=== PATIENT | female | born 1940 | race Caucasian/White ===

== ENCOUNTER 2016-04-20 13:58 | Inpatient (IN) | payer OTHER, MEDICARE ==
[~2016-04-20] VITALS: Ht 157.5 cm; Wt 57.7 kg
[2016-04-23] MEDS ORDERED: VITA20003 PO (12:19)
[2016-04-23] MEDS ORDERED: MAGN500T2 PO (12:19)
[2016-04-23] MEDS ORDERED: LOSA50TA PO (12:19)
[2016-04-23] MEDS ORDERED: ASPI81CH37 CHEW (12:19)
[2016-04-23] MEDS ORDERED: VYTO10TA8 PO (12:19)
--- NOTE | 2016-04-25 11:15 | PD.HP.UP ---
H&P Update Note The Pre-Admit History and Physical Examination regarding the above named patient was reviewed (including, but not limited to, vital signs, heart, lungs, co-morbid conditions), and upon re-examination it is noted that: the patient's condition has not significantly changed since the last examination. Ramón Lu MD Apr 25, 2016 11:15
[2016-04-25] MEDS ORDERED: ceFAZolin 1,000 MG/NS 100 ML IV SCH ×2 (11:30)
[2016-04-25] MEDS ORDERED: ALVIMOPAN 12 MG CAPSULE - On Call PO SCH (11:30)
[2016-04-25] MEDS ORDERED: METRONIDAZOLE 500 MG/100 ML ISONTONIC SOLN IV SCH (11:45)
[2016-04-25] MEDS ORDERED: NEOSTIGMINE 3 MG/3 ML SYR IV ONE (12:00)
[2016-04-25] MEDS ORDERED: LACTATED RINGER'S 1000 ML INJ 2,000 ML IV ONE (12:00)
[2016-04-25] MEDS ORDERED: ePHEDrine/NS 25 MG/5 ML SYR IV ONE (12:00)
[2016-04-25] MEDS ORDERED: ONDANSETRON HCL 4 MG/2 ML VIAL IV PUSH ONE (12:00)
[2016-04-25] MEDS ORDERED: PHENYLEPH/NS 1000 MCG/10 ML SYR IV ONE (12:00)
[2016-04-25] MEDS ORDERED: PROPOFOL 200 MG/20 ML AMP IV ONE (12:00)
[2016-04-25 12:13] VITALS: BP 119/73; PULSE 87; RESP 20; TEMP 98.4; O2SAT 95
[2016-04-25] MEDS ORDERED: SODIUM CHLORID 0.9% 500 ML IV SCH (12:15)
[2016-04-25] MEDS ORDERED: METOPROLOL TARTRATE 25 MG TAB PO PRN (12:15)
[2016-04-25] MEDS ORDERED: INSULIN HUMAN REGULAR 1,000 UNITS/10 ML VIAL SQ PRN (12:15)
[2016-04-25] MEDS: LACTATED RINGER'S 1000 ML IV SCH (12:24)
[2016-04-25] MEDS ORDERED: BUPIVACAINE HCL PF 0.5% 30 ML VIAL ONE (12:56)
[2016-04-25] MEDS ORDERED: DEXAMETHASONE SOD PHOS 4 MG/ML VIAL ONE (13:07)
[2016-04-25] MEDS ORDERED: MIDAZOLAM HCL 2 MG/2 ML VIAL ONE (13:07)
[2016-04-25] MEDS ORDERED: FAMOTIDINE 20 MG/2 ML VIAL ONE (13:07)
[2016-04-25] MEDS ORDERED: GLUCAGON 1 MG/ML VIAL ONE ×2 (14:24→14:25)
--- NOTE | 2016-04-25 15:42 | HHI.PR ---
Immediate Post Op Note Procedure Date: Apr 25, 2016 Pre Op Diagnosis: Colon stricture Post Op Diagnosis: Same Surgeon: Ramón Lu Dry Dip Worker(s): Lise Procedure: Exploratory laparotomy, LAR, bowel pre, colonoscopy Findings: colon stuck in lt pelvic sidewall, s shaped loop, tics liver normal, GB absent uterus/ovary absent Complications: None Specimen(s) removed: rectosigmoid Estimated blood loss: 150cc Anesthesia: General Drains: NATHANAEL IVF Patient to: PACU Ramón Lu MD Apr 25, 2016 15:42
[2016-04-25] MEDS ORDERED: ENALAPRILAT 2.5 MG/2 ML VIAL IV PRN (15:45)
[2016-04-25] MEDS ORDERED: Post-op Orders (for Pharmacy) MISC XX ONE (15:45)
[2016-04-25] MEDS ORDERED: POTASSIUM CHLOR 40 MEQ PREMIX 100 ML IV PRN (15:45)
[2016-04-25] MEDS ORDERED: POTASSIUM CHLOR 20 MEQ PREMIX 100 ML IV PRN (15:45)
[2016-04-25] MEDS ORDERED: ACETAMINOPHEN 325 MG TAB PO PRN (15:45)
[2016-04-25] MEDS ORDERED: NALOXONE HCL 0.4 MG/ML AMP IV PRN (15:45)
[2016-04-25] MEDS ORDERED: BUPIVACAINE HCL PF 0.5% 30 ML VIAL NB SCH (15:45)
[2016-04-25] MEDS ORDERED: KETOROLAC TROMETHAMINE 30 MG/ML (IVP) VIAL IVP PRN (15:45)
[2016-04-25] MEDS ORDERED: BENZOCAINE 6 MG/MENTHOL 10 MG LOZENGE SUCK-ON PRN (15:45)
[2016-04-25] MEDS ORDERED: MORPHINE SULFATE 30 MG/30 ML PCA IV SCH (15:45)
[2016-04-25] MEDS ORDERED: ENALAPRILAT 1.25 MG/ML VIAL IV PRN (15:45)
[2016-04-25] MEDS ORDERED: ACETAMINOPHEN/HYDROcodone 325 MG/5 MG TAB PO PRN ×2 (15:45)
[2016-04-25] MEDS ORDERED: SODIUM CHLORIDE 0.9% FLUSH 5 ML FLUSH IVF PRN (15:45)
[2016-04-25] MEDS ORDERED: fentaNYL CITRATE 250 MCG/5 ML AMP ONE (15:52)
[2016-04-25] MEDS ORDERED: *MEPERIDINE 25 MG INJ VIAL PERIprocedural Use ONLY ONE (15:58)
[2016-04-25] MEDS ORDERED: *morphine SULFATE 8 MG/ML PERIprocedure ONLY ONE (15:59)
[2016-04-25] MEDS: D5-NS + KCL 20 MEQ INJ 1,000 ML IV SCH ×2 (16:52→21:17)
[2016-04-25] MEDS: ONDANSETRON HCL 4 MG/2 ML VIAL IV PRN (17:07)
[2016-04-25 18:00] VITALS: BP 135/65; PULSE 99; RESP 27; TEMP 98; O2SAT 100
[2016-04-25 20:00] VITALS: BP 137/82; PULSE 107; PULSE 109; RESP 19; TEMP 97.8; O2SAT 98
[2016-04-25] MEDS: SODIUM CHLORIDE 0.9% FLUSH 5 ML FLUSH IVF SCH (21:00)
[2016-04-25] MEDS: METOCLOPRAMIDE HCL 10 MG/2 ML VIAL IVS SCH (21:33)
[2016-04-25] MEDS: metroNIDAZOLE 500 MG INJ 100 ML IV SCH (21:34)
[2016-04-25] MEDS: PRAVASTATIN SOD 40 MG TAB PO SCH (21:34)
[2016-04-25 22:00] VITALS: PULSE 97
[2016-04-26] VITALS (19 sets, daily range): BP systolic 104–144; BP diastolic 61–84; PULSE 81–111; RESP 16–24; TEMP 97.7–98.9; O2SAT 95–98
[2016-04-26] MEDS: D5-NS + KCL 20 MEQ INJ 1,000 ML IV SCH ×3 (03:00→14:00)
[2016-04-26] MEDS: metroNIDAZOLE 500 MG INJ 100 ML IV SCH ×2 (03:53→14:27)
[2016-04-26 05:57] LABS: AUTOMATED NEUTROPHIL # 12.4 TH/MM3 (1.8-7.7); BASOPHIL % 0.1 % (0.0-2.0); HEMATOCRIT 34.1 % (35.0-46.0); HEMO FLAGS DIFF FINAL; LYMPH % 3.9 % (9.0-44.0); LYMPHOCYTE # 0.6 TH/MM3 (1.0-4.8); MEAN CELL VOLUME 90.3 FL (80.0-100.0); MEAN CORPUSCULAR HEMOGLOBIN 31.1 PG (27.0-34.0); MEAN CORPUSCULAR HGB CONC 34.4 % (32.0-36.0); MONO % 7.2 % (0.0-8.0); NEUT % 88.8 % (16.0-70.0); PLATELET COUNT 202 TH/MM3 (150-450); RED BLOOD COUNT 3.77 MIL/MM3 (4.00-5.30); RED CELL DISTRIBUTION WIDTH 13.4 % (11.6-17.2)
[2016-04-26 06:29] LABS: BICARBONATE 25.2 MEQ/L (21.0-32.0); POTASSIUM 4.3 MEQ/L (3.5-5.1)
[2016-04-26 06:46] LABS: CALCIUM-PROTEIN CORRECTED 8.2 MG/DL (8.5-10.1)
--- NOTE | 2016-04-26 08:21 | HHI.PR ---
Subjective Remarks C/R Surg POD #1 afebrile, VSS UO good NATHANAEL min Objective - Vital Signs Date Time Temp Pulse Resp B/P Pulse Ox O2 Delivery O2 Flow Rate FiO2 04/26/16 07:00 110 04/26/16 04:00 98.1 20 109/64 98 04/26/16 04:00 Nasal Cannula 2.00 Result Diagram: 04/26/16 0510 04/26/16 0510 Objective Remarks PE alert Abd - soft, flat, wound dry A/P Assessment and Plan Imp: stable post-op OOB decr IVF tx to floor Ramón Lu MD Apr 26, 2016 08:21
[2016-04-26] MEDS: LOSARTAN 50 MG TAB PO SCH (09:24)
[2016-04-26] MEDS: PANTOPRAZOLE SODIUM 40 MG VIAL IVP SCH (09:24)
[2016-04-26] MEDS: METOCLOPRAMIDE HCL 10 MG/2 ML VIAL IVS SCH ×2 (09:24→22:51)
[2016-04-26] MEDS: PANTOPRAZOLE SOD 40 MG DELAYED RELEASE TAB PO SCH (09:24)
[2016-04-26] MEDS: SODIUM CHLORIDE 0.9% FLUSH 5 ML FLUSH IVF SCH ×2 (09:25→21:00)
[2016-04-26] MEDS: ALVIMOPAN 12 MG CAPSULE - Post-op dosing PO SCH ×2 (09:44→22:51)
[2016-04-26] MEDS: LACTATED RINGER'S 1000 ML IV SCH (12:15)
[2016-04-26] MEDS: PCA - TOTAL MG MORPHINE DELIVERED PER SHIFT SCH ×2 (14:00→22:00)
[2016-04-26] MEDS: ONDANSETRON HCL 4 MG/2 ML VIAL IV PRN (17:52)
[2016-04-26] MEDS: DEXT 5%-NACL 0.9% 1000 ML INJ 1,000 ML IV SCH (19:43)
[2016-04-26] MEDS ORDERED: ALVIMOPAN 12 MG CAPSULE PO SCH (21:00)
[2016-04-26] MEDS: PRAVASTATIN SOD 40 MG TAB PO SCH (22:51)
[2016-04-26] MEDS: EZETIMIBE 10 MG TAB PO SCH ×2 (22:51→22:59)
[2016-04-27] VITALS: BP 134/76; PULSE 90; RESP 18; TEMP 98.2; O2SAT 97
[2016-04-27] MEDS: D5-NS + KCL 20 MEQ INJ 1,000 ML IV SCH (02:38)
[2016-04-27] MEDS: DEXT 5%-NACL 0.9% 1000 ML INJ 1,000 ML IV SCH ×4 (03:45→22:44)
[2016-04-27 04:57] LABS: AUTOMATED NEUTROPHIL # 10.9 TH/MM3 (1.8-7.7); BASOPHIL % 0.1 % (0.0-2.0); EOSINOPHIL % 0.1 % (0.0-4.0); HEMATOCRIT 32.6 % (35.0-46.0); HEMO FLAGS DIFF FINAL; LYMPH % 6.6 % (9.0-44.0); LYMPHOCYTE # 0.8 TH/MM3 (1.0-4.8); MEAN CELL VOLUME 89.5 FL (80.0-100.0); MEAN CORPUSCULAR HEMOGLOBIN 30.9 PG (27.0-34.0); MEAN CORPUSCULAR HGB CONC 34.5 % (32.0-36.0); MONO % 4.5 % (0.0-8.0); NEUT % 88.7 % (16.0-70.0); PLATELET COUNT 174 TH/MM3 (150-450); RED BLOOD COUNT 3.65 MIL/MM3 (4.00-5.30); RED CELL DISTRIBUTION WIDTH 13.4 % (11.6-17.2); WHITE BLOOD COUNT 12.2 TH/MM3 (4.0-11.0)
[2016-04-27 05:21] LABS: BICARBONATE 25.6 MEQ/L (21.0-32.0); POTASSIUM 3.7 MEQ/L (3.5-5.1)
[2016-04-27] MEDS: PCA - TOTAL MG MORPHINE DELIVERED PER SHIFT SCH (05:29)
[2016-04-27 08:00] VITALS: BP 130/77; PULSE 115; RESP 20; TEMP 98.2; O2SAT 93
[2016-04-27] MEDS: PANTOPRAZOLE SODIUM 40 MG VIAL IVP SCH (08:18)
[2016-04-27] MEDS: PANTOPRAZOLE SOD 40 MG DELAYED RELEASE TAB PO SCH (08:18)
[2016-04-27] MEDS: LOSARTAN 50 MG TAB PO SCH (08:18)
[2016-04-27] MEDS: ALVIMOPAN 12 MG CAPSULE - Post-op dosing PO SCH ×2 (08:19→20:43)
[2016-04-27] MEDS: SODIUM CHLORIDE 0.9% FLUSH 5 ML FLUSH IVF SCH ×2 (08:19→20:43)
[2016-04-27] MEDS: METOCLOPRAMIDE HCL 10 MG/2 ML VIAL IVS SCH ×2 (08:19→20:43)
[2016-04-27] MEDS: LACTATED RINGER'S 1000 ML IV SCH (11:45)
[2016-04-27 12:00] VITALS: BP 130/73; PULSE 103; RESP 18; TEMP 97.9; O2SAT 94
[2016-04-27 16:00] VITALS: BP 128/68; PULSE 98; RESP 20; TEMP 98.2; O2SAT 96
[2016-04-27 20:00] VITALS: BP 130/79; PULSE 111; RESP 20; TEMP 98.4; O2SAT 95
[2016-04-27] MEDS: PRAVASTATIN SOD 40 MG TAB PO SCH (20:43)
[2016-04-27] MEDS: EZETIMIBE 10 MG TAB PO SCH (20:43)
--- NOTE | 2016-04-27 22:02 | HHI.PR ---
Subjective Remarks C/R Surg POD #2 afebrile, VSS UO good NATHANAEL min started PO Objective - Vital Signs Date Time Temp Pulse Resp B/P Pulse Ox O2 Delivery O2 Flow Rate FiO2 04/27/16 16:00 98.2 98 20 128/68 96 04/27/16 08:10 Room Air 04/26/16 04:00 2.00 Result Diagram: 04/27/16 0405 04/27/16 0405 Objective Remarks PE alert Abd - soft, flat, wound dry, +flatus A/P Assessment and Plan Imp: OOB decr IVF adv PO Ramón Lu MD Apr 27, 2016 22:02
[2016-04-28] VITALS: BP 115/65; PULSE 107; RESP 20; TEMP 98.6; O2SAT 94
[2016-04-28] MEDS: D5-NS + KCL 20 MEQ INJ 1,000 ML IV SCH (02:23)
[2016-04-28 08:00] VITALS: BP 119/70; PULSE 107; RESP 20; TEMP 99.6; O2SAT 94
[2016-04-28] MEDS: ALVIMOPAN 12 MG CAPSULE - Post-op dosing PO SCH (08:59)
[2016-04-28] MEDS: PANTOPRAZOLE SOD 40 MG DELAYED RELEASE TAB PO SCH (08:59)
[2016-04-28] MEDS: LOSARTAN 50 MG TAB PO SCH (08:59)
[2016-04-28] MEDS: METOCLOPRAMIDE HCL 10 MG/2 ML VIAL IVS SCH (09:00)
[2016-04-28] MEDS: PANTOPRAZOLE SODIUM 40 MG VIAL IVP SCH (09:00)
[2016-04-28] MEDS: SODIUM CHLORIDE 0.9% FLUSH 5 ML FLUSH IVF SCH (09:00)
[2016-04-28] MEDS ORDERED: HYDR-3516 PO (09:57)
--- NOTE | 2016-04-30 08:02 | MP ---
cc: JESUS AWAN M.D. DATE OF SURGERY April 25, 2016 PREOPERATIVE DIAGNOSES 1. Colonic stricture. 2. History of diverticular disease. PROCEDURE 1. Exploratory laparotomy with proctosigmoidectomy and low pelvic anastomosis. 2. On-table bowel prep. 3. Colonoscopy. POSTOPERATIVE DIAGNOSIS Diverticular stricture of the rectosigmoid. SURGEON Dr. Awan ASSESSMENT Dr. Dany Lezama PROCEDURE The patient was placed in the supine position. After adequate general anesthesia her legs were placed in Clarence stirrups and supported appropriately. The abdomen and perineum were then prepped with Betadine solution and draped in the usual sterile fashion. With Dr. Lezama's assistance, the abdomen was opened through a infraumbilical transverse incision, dividing the rectus muscles with electrocautery. Exploration revealed some adhesions to the parietal peritoneum. Palpation of the colon revealed a knuckle of sigmoid colon which was stuck down to the left pelvic sidewall, thickened and consistent with some chronic diverticular inflammation. The proximal colon was gently dilated with both air and liquid stool. No other palpable masses were felt within the proximal colon. The small bowel was run from ligament of Treitz to the ileocecal valve and felt to be normal. The stomach and duodenum were normal. The liver had no palpable masses. The uterus and ovaries were surgically absent. First the sigmoid colon was mobilized medially by dividing along the white line of Toldt. The left ureter was identified and carefully preserved. Dissection then proceeded up the left gutter, freeing attachments to the retroperitoneum, taking down the splenic flexure into the lesser sac, mobilizing the gastrocolic omentum off the transverse colon. The right retroperitoneal space was then opened and the bowel dissected off the presacral fascia. Anteriorly the bowel was dissected off the left pelvic sidewall preserving the left ureter along its entire course. In the region of the cul-de-sac the bowel was stuck from previous adhesions and these were released mobilizing the bowel up out of the pelvis. After adequate mobilization there appeared to be softer, more pliable rectal tissue and the mesorectum was taken in the proximal rectum, finally dividing the bowel between a pursestring suture device and a Janice clamp. Next, the bowel was then sized to reach the rectal pouch without tension and with good blood supply, taking the left colic vessels for full left mobilization. At a point proximal to the obstruction the mesorectum was divided in the bowel finally divided between a pursestring suture device and the Janice clamp. The bowel was then prepped on the table with several liters of normal saline flushing all the way back to the cecum until the effluent was pretty clear. The end of the bowel was then sized to accept an EEA stapling anvil and this was secured with a pursestring suture. Dr. Lezama inserted the EEA stapling instrument transanally and under direct vision it was brought up to the end of the rectal pouch and the pursestring suture tied. The stapler was then reassembled, the bowel aligned properly, the stapler closed and fired. Upon withdrawal two complete doughnuts of tissue were seen. Dr. Lezama inserted the colonoscope and under direct vision passed up to the proximal colon and around to the cecum. The ileocecal valve was seen. No vascular abnormalities were noted within the cecum. The colonoscope was then gradually withdrawn visualizing the mucosal surface throughout the distal colon. No polyps or other areas of narrowing or stricture and formation were noted. Upon withdrawal, insufflation did confirm an airtight anastomosis. The abdomen was then irrigated copiously with normal saline, adequate hemostasis achieved. A Be-Wilkinson drain was placed down into the pelvis and brought up through a stab wound in the right lower quadrant, secured to the skin with a nylon suture. The transverse incision was then closed anatomically in two layers using #1 PDS sutures to reapproximate the respective fascial layers. On-Q catheters were placed in the rectus sheath on both sides and brought up through subcutaneous tunnels above the transverse incision. The subcu tissue was irrigated copiously and the skin closed with a running subcuticular Vicryl suture. The wound area was washed with normal saline and dried, sterile dressing of Telfa and gauze was applied. The patient tolerated the procedure quite well and was brought to the recovery room in stable condition. Sponge and needle counts were correct at the end of the procedure. MD MADDY Padron/DEVI /11:13 PM /7:48 AM
--- NOTE | 2016-06-19 13:28 | MD ---
cc: KAI TOVAR,JESUS Monzon M.D. ADMISSION DATE: 04/25/2016 DISCHARGE DATE: 04/28/2016 ADMITTING DIAGNOSIS 1. Colonic stricture. 2. History of diverticular disease. PROCEDURE April 25, 2016 exploratory laparotomy with proctosigmoidectomy and low pelvic anastomosis, on-table bowel prep, intraoperative colonoscopy. DISCHARGE DIAGNOSIS Diverticular stricture of the rectosigmoid. HISTORY OF PRESENT ILLNESS Mrs. Stallworth is a 75-year-old female who had been seen recently for change in bowel habits and crampy lower abdominal pain. She had obstructive symptoms with difficulty with bowel movements. Stools are very thin and gas has been more uncomfortable. She has tried a stool softener but has had no relief. Outpatient colonoscopy showed a narrowing and partial obstruction of the rectosigmoid consistent with diverticular disease. She denies any rectal bleeding or melena. Appetite has remained poor and she has lost weight. The patient was admitted at this time for definitive surgical resection of the diverticular disease and completion colonoscopy. Please see the admitting history and physical for complete past medical and surgical history. PERTINENT PHYSICAL A very pleasant elderly female in no acute distress. Abdomen is very soft and benign. Tympany but no real tenderness. No masses. No rebound or guarding. Anal inspection reveals benign canal. Digital exam reveals fair to good tone with mass in the left pelvic sidewall. HOSPITAL COURSE After admission, the patient was taken to the operating room on April 25, 2016 at which point she underwent an exploratory laparotomy, proctosigmoidectomy and low pelvic anastomosis, on-table bowel prep and intraoperative colonoscopy. She was found to have a knuckle of sigmoid colon stuck down to the left pelvic sidewall, thickened and consistent with chronic diverticular inflammation. The proximal colon was gently dilated and full of air and liquid stool. No other masses were noted and the intraoperative colonoscopy was unremarkable. The patient tolerated the procedure quite well. Initially she was stabilized in the intensive care unit. Her GI tract function returned fairly promptly and her diet was advanced accordingly. She needed some physical therapy for postoperative weakness and muscle strengthening. She was able to have bowel movements and weaned off her IV fluids, considered ready for discharge home on April 28, 2016. Final pathology report revealed a segment of rectosigmoid with extensive diverticular disease and mild diverticulitis. No evidence of malignancy. DISCHARGE INSTRUCTIONS The patient was discharged eating a regular diet. She was encouraged to ambulate daily, avoiding any heavy lifting or straining. All pre-op medications were to be resumed. The patient will be seen in the office in one weeks' time for routine follow-up. Any problems prior to the scheduled office visit she was instructed to call for more urgent attention. MD MADDY Padron/NEGRO /8:25 PM /1:13 PM
== END 2016-04-28 11:15 | disposition home or self-care (01) | DRG 331 ==
LOC: HSDI 04-25 10:44 → HCPC 04-25 18:01 → N07A 04-26 18:25
PROVIDERS: ADMIT Colon & Rectal Surgery; ATTEND Colon & Rectal Surgery
PROC: 0DBP0ZZ Excision of Rectum, Open Approach (ICD-10-PCS; 2016-04-25)
PROC: 0DJD8ZZ Inspection of Lower Intestinal Tract, Via Natural or Artificial Opening Endoscopic (ICD-10-PCS; 2016-04-25)
PROC: 0DBN0ZZ Excision of Sigmoid Colon, Open Approach (ICD-10-PCS; principal; 2016-04-25 13:13)
PROC: 0WJP0ZZ Inspection of Gastrointestinal Tract, Open Approach (ICD-10-PCS; 2016-04-25 13:13)
DX: K56.69 Other intestinal obstruction (principal); K57.30 Diverticulosis of large intestine without perforation or abscess without bleeding
CPT/HCPCS: 36415; 71020; 76937; 80048; 80053; 81001; 84155; 85025; 85610; 85730; 86850; 86900; 86901; 88307; 94150; C9113; J0690; J1100; J1610; J1885; J2175; J2250; J2270; J2370; J2405; J2710; J2765; J3010; J3480; J7042; J7120

== ENCOUNTER → 2016-04-23 | Outpatient (CLI) | payer OTHER ==
[~2016-04-23] MED LIST: ASPI81CH37 CHEW; HYDR-3516 PO; LOSA50TA PO; MAGN500T2 PO; VITA20003 PO; VYTO10TA8 PO
[2016-04-23 12:45] LABS: AUTOMATED NEUTROPHIL # 4.3 TH/MM3 (1.8-7.7); BASOPHIL % 0.2 % (0.0-2.0); EOSINOPHIL # 0.1 TH/MM3 (0-0.4); HEMATOCRIT 45.4 % (35.0-46.0); HEMO FLAGS DIFF FINAL; LYMPH % 24.3 % (9.0-44.0); LYMPHOCYTE # 1.5 TH/MM3 (1.0-4.8); MEAN CELL VOLUME 90.1 FL (80.0-100.0); MEAN CORPUSCULAR HEMOGLOBIN 30.5 PG (27.0-34.0); MEAN CORPUSCULAR HGB CONC 33.9 % (32.0-36.0); MONO % 6.4 % (0.0-8.0); NEUT % 68.1 % (16.0-70.0); PLATELET COUNT 261 TH/MM3 (150-450); RED BLOOD COUNT 5.04 MIL/MM3 (4.00-5.30); RED CELL DISTRIBUTION WIDTH 13.4 % (11.6-17.2); WHITE BLOOD COUNT 6.3 TH/MM3 (4.0-11.0)
[2016-04-23 12:49] LABS: BLOOD, URINE NEG (NEG); COMMENT (UR) CULT NOT INDICATED; CULTURE IF INDICATED CULT NOT INDICATED; GLUCOSE,URINE NEG (NEG); KETONE, URINE NEG (NEG); NITRITE,URINE NEG (NEG); PH, URINE 6.5 (5.0-8.5); URINE COLOR LIGHT-YELLOW (YELLW/STRAW)
[2016-04-23 12:56] LABS: APTT (PATIENT) 24.7 SEC (24.3-30.1); INTERNATIONAL NORMALIZED RATIO 0.9 RATIO; PROTHROMBIN TIME - PATIENT 10.3 SEC (9.8-11.6)
--- NOTE | 2016-04-23 13:09 | RADRPT ---
EXAM DATE/TIME: 04/23/2016 12:45 [place] COMPARISON: No previous studies available for comparison. INDICATIONS : Preop, Evaluate for communicable disease, pneumonia, pneumothorax MEDICAL HISTORY : None. SURGICAL HISTORY : None. ENCOUNTER: Initial ACUITY: 1 day PAIN SCORE: 0/10 LOCATION: Bilateral chest FINDINGS: PA and lateral views of the chest demonstrate the lungs to be symmetrically aerated without evidence of mass, infiltrate or effusion. The cardiomediastinal contours are unremarkable. Osseous structure s are intact. CONCLUSION: No acute disease. Robert Gould MD FACR on April 23, 2016 at 13:07 Board Certified Radiologist. This report was verified electronically.
[2016-04-23 13:33] LABS: ALKALINE PHOSPHATASE 71 U/L (45-117); ALT (GPT) 26 U/L (10-53); ANION GAP 8 MEQ/L (5-15); AST (GOT) 14 U/L (15-37); BICARBONATE 29.2 MEQ/L (21.0-32.0); BLOOD UREA NITROGEN 12 MG/DL (7-18); CHLORIDE 101 MEQ/L (98-107); GLOMERULAR FILTRATION RATE 69 ML/MIN (>89); GLUCOSE,FASTING 94 MG/DL (74-99); POTASSIUM 3.9 MEQ/L (3.5-5.1); SODIUM (NA) 138 MEQ/L (136-145); TOTAL BILIRUBIN ADULT 0.6 MG/DL (0.2-1.0)
== END ==
LOC: CPRE 11:50
PROVIDERS: ATTEND Colon & Rectal Surgery
DX: Z01.810 Encounter for preprocedural cardiovascular examination (principal); Z01.811 Encounter for preprocedural respiratory examination; Z01.812 Encounter for preprocedural laboratory examination; K56.69 Other intestinal obstruction
CPT/HCPCS: 36415; 71020; 80053; 81001; 85025; 85610; 85730; 86850; 86900; 86901